=== PATIENT | male | born 1955 | race Caucasian/White ===

== ENCOUNTER 2022-07-12 19:17 | Emergency (ER) | payer MEDICARE ==
[~2022-07-12] VITALS: Ht 177.8 cm; Wt 77.1 kg
[2022-07-12 19:55] VITALS: BP 131/70
[2022-07-12] MEDS ORDERED: LIDOCAINE 2% JEL UROJET 10 ML MM ONE (19:59)
[2022-07-12] MEDS ORDERED: TAMS-12 PO (20:14)
--- NOTE | 2022-07-12 20:16 | NUR ---
IFC F16 INSERTED USING A COULDE. WILL CHANGE TO LEG BAG BEFORE DISCHARGE
--- NOTE | 2022-07-12 20:38 | NUR ---
CHANGE UROBAG TO LEG BAG PRIOR TO DISCHARGE. ABLE TO REMOVE 550ML OF URINE
--- NOTE | 2022-07-12 20:38 | NUR ---
Patient discharged to home in stable condition. Written and verbal after care instructions given. Patient verbalizes understanding of instruction.
== END 2022-07-12 20:40 | disposition home or self-care (01) ==
LOC: ER 19:58
DX: R33.9 Retention of urine, unspecified (principal); N40.1 Benign prostatic hyperplasia with lower urinary tract symptoms; Z98.890 Other specified postprocedural states; Z60.2 Problems related to living alone; Z79.899 Other long term (current) drug therapy
CPT/HCPCS: 99284; 51702; J3490